=== PATIENT | female | born 1935 | race Caucasian/White ===

== ENCOUNTER 2017-11-10 07:38 | Day surgery (SDC) | payer MEDICARE, OTHER ==
[2017-11-10 08:36] VITALS: RESP 20; TEMP 97.9
[2017-11-10 08:40] LABS: Mean Platelet Volume 7.6; Platelet Count 217 k/uL (150-450)
[2017-11-10 08:46] LABS: INR 1.2 (<1.2); Prothrombin Time 11.4 sec (9.0-12.0)
[2017-11-10] MEDS ORDERED: ALPRAZolam 0.25 MG TAB PO STA (08:57)
[2017-11-10] MEDS ORDERED: cloNIDine HCL 0.1 MG TAB PO STA (10:02)
[2017-11-10 11:02] VITALS: PULSE 52
--- NOTE | 2017-11-10 11:54 | US ---
Discontinued core biopsy liver HISTORY: Liver masses Patient is hypertensive. Hypertension is unable to be controlled medically in the clinic. Patient to be rescheduled. IMPRESSION: Discontinued core biopsy liver mass
[2017-11-10 12:19] VITALS: BP 188/80
== END 2017-11-10 11:30 | disposition home or self-care (01) ==
LOC: RADPROMAIN 07:38
PROVIDERS: ATTEND Internal Medicine
DX: R16.0 Hepatomegaly, not elsewhere classified (principal); I10 Essential (primary) hypertension; Z53.8 Procedure and treatment not carried out for other reasons
CPT/HCPCS: 36415; 76705; 85049; 85610

== ENCOUNTER → 2017-11-21 | Day surgery (SDC) | payer MEDICARE, OTHER ==
[~2017-11-21] MED LIST: MORPHINE SULFATE 4 MG/ML SYRINGE IVP ONE
[2017-11-21 09:23] LABS: Mean Platelet Volume 7.6; Platelet Count 294 k/uL (150-450)
[2017-11-21 09:32] LABS: INR 1.2 (<1.2); Prothrombin Time 11.3 sec (9.0-12.0)
[2017-11-21 11:24] VITALS: TEMP 97.8
[2017-11-21 12:33] VITALS: RESP 16
--- NOTE | 2017-11-21 12:53 | US ---
EXAMINATION TYPE: US biopsy liver DATE OF EXAM: 11/21/2017 HISTORY: Liver masses. FINDINGS: Maximal barrier technique was utilized. The skin overlying a suitable path to the patient' s mass was localized with ultrasound and the overlying skin prepped and draped. Ultrasound was utili zed with sterile technique. Lidocaine was used for local anesthesia. A skin miguel angel was made with a sc alpel. An 18-gauge needle was advanced under direct ultrasound guidance and core specimen obtained o f the left lobe liver mass. Specimen submitted in formalin to Pathology. Following the procedure, h emostasis achieved and the patient is discharged in stable condition without complication. IMPRESSION:STATUS POST ULTRASOUND GUIDED CORE BIOPSY OF left lobe liver MASS, PATHOLOGY IS PENDING. THIS PROCEDURE IS PERFORMED BY THE UNDERSIGNED.
[2017-11-21 14:17] VITALS: BP 151/76; PULSE 67
== END | disposition home or self-care (01) ==
LOC: RADPROMAIN 08:20
PROVIDERS: ATTEND Internal Medicine
DX: C78.7 Secondary malignant neoplasm of liver and intrahepatic bile duct (principal)
CPT/HCPCS: 85049; 85610; 88342; 88307; 88341; 47000; 76942; J2270

== ENCOUNTER → 2017-12-03 | Outpatient (CLI) | payer MEDICARE, OTHER ==
--- NOTE | 2017-12-03 12:55 | MR ---
MR thoracic spine with and without contrast HISTORY: Lung carcinoma, thoracic pain Multiplanar multisequence and postcontrast images through the thoracic spine following 8.5 cc Gadavis t IV Comparisons: none Mild kyphosis. Multilevel spondylosis is present with endplate discogenic marrow signal change and lo ss of disc height and signal. Abnormal marrow signal noted at multiple vertebral bodies to include T9 and T10, T12. At T9 and T10 intermediate signal seen on T1 and T2-weighted sequences with some enhan cement on contrast administration. There is no significant foraminal encroachment or spinal stenosis. There is a scoliosis noted incidentally. Abnormal signal in the left lobe compatible with patient's history of lung carcinoma. There is a left greater than right pleural effusion present. Liver mass no janeth incidentally. Increased signal within the T12 vertebral body may represent hemangioma. Thoracic c ord signal is maintained. Some facet arthropathy change present in the lower thoracic spine. IMPRESSION: Findings compatible with patient's history of lung cancer, metastatic disease, there is d egenerative disc disease present. Scoliosis.
== END | disposition home or self-care (01) ==
LOC: RADMRIMAIN 11:15
PROVIDERS: ATTEND Internal Medicine Hematology & Oncology
DX: M51.34 Other intervertebral disc degeneration, thoracic region (principal); M41.9 Scoliosis, unspecified; C34.12 Malignant neoplasm of upper lobe, left bronchus or lung
CPT/HCPCS: 82565; 72157; 36415; A9581

== ENCOUNTER 2018-01-02 08:40 | Day surgery (SDC) | payer MEDICARE, OTHER ==
[2018-01-02 09:38] VITALS: TEMP 97.6
[2018-01-02 09:40] LABS: Mean Platelet Volume 7.5; Platelet Count 256 k/uL (150-450)
[2018-01-02 09:47] LABS: INR 1.2 (<1.2); Prothrombin Time 11.7 sec (9.0-12.0)
[2018-01-02] MEDS ORDERED: HYDROmorphone 1 MG/ML 1 ML SYRINGE IVP PRN (10:15)
[2018-01-02] MEDS ORDERED: HYDROcodone/APAP 5-325MG 1 EACH TAB PO PRN (11:05)
[2018-01-02 11:17] VITALS: RESP 18
[2018-01-02 12:11] VITALS: PULSE 68
[2018-01-02] MEDS ORDERED: hydrALAZINE HCL 25 MG TAB PO STA (13:40)
--- NOTE | 2018-01-02 13:44 | CT ---
EXAMINATION TYPE: CT biopsy liver DATE OF EXAM: 01/02/2018 COMPARISON: Ultrasound 11/21/2017 HISTORY: Liver mass CT DLP: 903mGycm PROCEDURE: The risks, applications, benefits and alternatives, were discussed with the patient and questions wer e answered. Informed consent was obtained. The patient was placed supine on the fluoroscopic table, prepped and draped in the usual sterile fashion. A 18-gauge system was utilized with direct passage of the needle into the left lobe liver lesion und er CT guidance. Samples were obtained with a single core biopsy sample obtained. Pathology pending. The patient was stable throughout procedure and remained stable upon discharge from radiology. All e lements of maximal barrier and sterile technique were utilized. IMPRESSION: 1. Successful left lobe liver mass core biopsy under CT guidance.
[2018-01-02 15:23] VITALS: BP 137/63
== END 2018-01-02 15:15 | disposition home or self-care (01) ==
LOC: RADPROMAIN 08:40
PROVIDERS: ATTEND Internal Medicine Hematology & Oncology
DX: C78.7 Secondary malignant neoplasm of liver and intrahepatic bile duct (principal)
CPT/HCPCS: 85049; 85610; 88342; 88307; 88341; 96374; 36415; 47000; 77012; J1170

== ENCOUNTER → 2018-03-30 | Outpatient (CLI) | payer MEDICARE, OTHER ==
--- NOTE | 2018-03-31 15:23 | CT ---
EXAMINATION TYPE: CT ChestAbdPelvis w con DATE OF EXAM: 03/30/2018 COMPARISON: MRI of the thoracic spine dated 12/03/2017 HISTORY: Follow-up for lung carcinoma CT DLP: 1304.9 mGycm. Automated Exposure Control for Dose Reduction was Utilized. CONTRAST: CT scan of the thorax, abdomen and pelvis is performed with IV Contrast, patient injected with 100 mL of Isovue 300. FINDINGS: LUNGS: There is a left upper lobe pulmonary mass compatible the patient's known history of lung carci noma. This is heterogenous with areas of hyperdensity and more hypodense areas of probable necrosis. This measures 4.1 x 5.3 x 4.5 cm in transverse by anterior posterior by craniocaudal dimension on ser ies 4 image 15 and series 8 image 79. There is extent of this mass to surround and encase the left up per lobe pulmonary artery with subsequent narrowing. There is also encasement of the left hilum witho ut bronchial narrowing. Pulmonary nodule within the left upper lobe on image 18 is solid in nature an d measures 7 mm anteriorly. Adjacent pulmonary nodule to the primary index mass measures 5 mm on imag e 20. 5 mm pulmonary nodule medially within the left lower lobe is on image 29. 3 mm pulmonary nodule is seen in the left lower lobe on image 31. There is a moderate left pleural effusion and associated atelectasis. Nodular left apical pleural parenchymal scarring is noted. On the right there is a 3 mm right upper lobe solid pulmonary nodule on image 14 and a 2 mm right upp er lobe pulmonary nodule on image 24. There is an ill-defined 2 mm pulmonary nodule on image 28 withi n the superior segment of the right lower lobe. There is a 5 mm solid right middle lobe pulmonary nod ule on image 30 and 2 additional pulmonary nodules on image 33 measuring up to 6 mm. Solid right lowe r lobe pulmonary nodule on image 34 is also identified measuring 4 mm. There is a trace right pleural effusion. MEDIASTINUM: Peribronchial abnormal soft tissue density as discussed in the lung section is appreciat ed however there is no discrete mediastinal adenopathy. Severe coronary artery calcifications are not ed as well as mild cardiomegaly. No pericardial effusion. LIVER/GB: Diffuse hepatic metastasis is seen with the some of the most confluent hepatic lesions in t he inferior right hepatic lobe measuring 3.2 cm and 3.7 cm. Within the left hepatic lobe the largest lesion measures at least 4.6 x 2.6 cm. There are at least 20 hepatic metastasis that are hypoattenuat ed and 2 subcapsular hyperattenuated arterial enhancing foci. Perihepatic ascites also seen. PANCREAS: Atrophy and diffusely hypoattenuating possibly related to infiltrating edema from the abdom inal ascites. SPLEEN: Findings suspicious for splenic metastasis is seen as there are 4 hypoattenuated ill-defined suspicious lesions measuring up to 2.3 cm. ADRENALS: No significant abnormality is seen. KIDNEYS: There is cortical renal atrophy bilaterally with a dystrophic calcification in the right liza al cortical midpole. No hydronephrosis. BOWEL: No dilated large or small bowel. There is centralization of small bowel loop secondary to the abdominal ascites. Colon is decompressed and suboptimally evaluated. LYMPH NODES: Evaluation for adenopathy is limited given the mesenteric congestion and abdominal ascit es. There is suspicion for periportal adenopathy. 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 Abnormal bone marrow is seen within t he T9 and T10 vertebral bodies corresponding to the known metastasis. Known metastasis at T12 is less well seen on CT and better evaluated with MRI. Grade 1 anterolisthesis of L4 on L5 is present. Multi level degenerative change of the spine is noted. Left femoral arthroplasty and moderate degenerative changes of the right femur are present. No compression deformities are seen. Scoliosis is redemonstra janeth. OTHER: As stated above there is moderate abdominopelvic ascites and mesenteric congestion throughout as well as anasarca. Severe atherosclerosis is seen of the abdominal aorta and its branches. Abdominal aorta is of normal course and caliber. IMPRESSION: 1. Left upper lobe pulmonary carcinoma measures up to 5.3 cm in anterior posterior dimension with ips ilateral and contralateral pulmonary nodules representing metastasis given the innumerable metastatic hepatic lesions and metastatic osseous lesions at T9 and T10. There is narrowing of the left upper l obe pulmonary artery and encasement of the bronchi without bronchial obstruction. No pathologic compr ession deformities of T9 or T10. No mediastinal adenopathy. 2. Moderate abdominopelvic ascites, anasarca and mesenteric congestion. 3. Findings highly suspicious for splenic metastasis.
== END | disposition home or self-care (01) ==
LOC: RADCTMAIN 12:46
PROVIDERS: ATTEND Internal Medicine Hematology & Oncology
DX: C79.51 Secondary malignant neoplasm of bone (principal); C78.7 Secondary malignant neoplasm of liver and intrahepatic bile duct; C34.12 Malignant neoplasm of upper lobe, left bronchus or lung; R18.8 Other ascites
CPT/HCPCS: 36415; 71260; 74177; 82565; 84520

== ENCOUNTER 2018-04-08 08:51 | Day surgery (SDC) | payer MEDICARE, OTHER ==
[2018-04-08 09:43] VITALS: RESP 16; TEMP 97.8
[2018-04-08 09:43] LABS: Mean Platelet Volume 7.3; Platelet Count 354 k/uL (150-450)
[2018-04-08 10:01] LABS: INR 1.2 (<1.2); Prothrombin Time 11.7 sec (9.0-12.0)
--- NOTE | 2018-04-08 10:33 | XR ---
EXAMINATION TYPE: XR chest 1V DATE OF EXAM: 04/08/2018 COMPARISON: 03/30/2018 HISTORY: Postthoracentesis TECHNIQUE: Single frontal view of the chest is obtained. FINDINGS: Bilateral shoulder prostheses noted with left consolidation mass. No sizable pneumothorax. Right lung is clear. Atherosclerotic change aorta. Subsegmental changes involving the left upper and lower lobe. IMPRESSION: 1. No pneumothorax postthoracentesis. 2. left upper lobe lung mass
--- NOTE | 2018-04-08 11:07 | US ---
Ultrasound-guided therapeutic and diagnostic thoracentesis DATE OF EXAM: 04/08/2018 CLINICAL HISTORY: Left pleural effusion The procedure was discussed with the patient. The risks, complications, benefits, and alternatives we re discussed and any questions were answered. Informed consent was obtained. The patient was placed supine on the ultrasound table and prepped and draped in the usual sterile fas hion. All elements of maximal barrier and sterile technique were utilized. Under ultrasound guidance, access into the left pleural space was obtained, via the thoracentesis catheter system and direct ultrasound guidance. Elvira roximately 400 liters of serous fluid was removed. The patient was stable throughout the procedure and remained stable upon discharge from Department of Radiology. Sample sent to pathology for analysis. IMPRESSION: 1. Successful therapeutic and diagnostic thoracentesis under ultrasound guidance.
[2018-04-08 11:18] VITALS: BP 149/82; PULSE 96
== END 2018-04-08 10:45 | disposition home or self-care (01) ==
LOC: RADPROMAIN 08:51
PROVIDERS: ATTEND Internal Medicine Hematology & Oncology
DX: J90 Pleural effusion, not elsewhere classified (principal)
CPT/HCPCS: 32555; 36415; 71045; 85049; 85610; 88108; 88305

== ENCOUNTER → 2018-04-16 | Outpatient (CLI) | payer MEDICARE, OTHER ==
--- NOTE | 2018-04-16 13:55 | XR ---
EXAMINATION TYPE: XR chest 2V DATE OF EXAM: 04/16/2018 COMPARISON: 04/08/2018 TECHNIQUE: PA and lateral views submitted. HISTORY: Lung cancer FINDINGS: Left upper lobe lung mass is stable. Atherosclerotic change aorta and left lower lobe consolidation w ith small effusion now seen. Right lung demonstrates subsegmental changes at the base. No pneumothora x. Postsurgical change bilateral shoulder. Hypertrophic and degenerative change of the spine. IMPRESSION: 1. There is left lower lobe infiltrate and small effusion which was not clearly seen on the previous exam. 2. Large left upper lobe lung mass.
== END ==
LOC: RADXRMAIN 13:28
PROVIDERS: ATTEND Nurse Practitioner Adult Health
DX: C34.12 Malignant neoplasm of upper lobe, left bronchus or lung (principal); R91.8 Other nonspecific abnormal finding of lung field; D64.81 Anemia due to antineoplastic chemotherapy
CPT/HCPCS: 71046

== ENCOUNTER → 2018-04-28 | Outpatient (CLI) | payer MEDICARE, OTHER ==
[2018-04-28 21:53] LABS: T4, Free (Free Thyroxine) 1.3 ng/dL (0.80-1.80)
[2018-04-28 21:55] LABS: Anion Gap 13.3 mmol/L (4.00-12.00); Calcium 8.2 mg/dL (8.7-10.3); Carbon Dioxide 21.7 mmol/L (21.6-31.8); Potassium 3.8 mmol/L (3.5-5.5); Total Bilirubin 0.6 mg/dL (0.2-1.2)
== END | disposition home or self-care (01) ==
LOC: LABWHC1 11:39
PROVIDERS: ATTEND Internal Medicine Hematology & Oncology
DX: C34.12 Malignant neoplasm of upper lobe, left bronchus or lung (principal); R60.9 Edema, unspecified; D64.81 Anemia due to antineoplastic chemotherapy; M54.5 Low back pain
CPT/HCPCS: 36415; 80053; 84439; 84443; 84479

== ENCOUNTER → 2018-05-21 | Outpatient (CLI) | payer MEDICARE, OTHER ==
--- NOTE | 2018-05-21 16:55 | US ---
EXAMINATION TYPE: US kidneys/renal and bladder DATE OF EXAM: 05/21/2018 COMPARISON: NONE CLINICAL HISTORY: N18.3 CKD Stage 3. CA patient, chronic renal failure EXAM MEASUREMENTS: Right Kidney: 8.8 x 4.4 x 4.6 cm Left Kidney: 9.3 x 4.4 x 4.8 cm Right Kidney: small in size, no hydronephrosis or masses seen Left Kidney: No hydronephrosis or masses seen Bladder: Not well evaluated during exam. Bilateral Jets seen: not seen IMPRESSION: 1. Bilateral kidneys appear within normal limits ultrasound. 2. Urinary bladder cannot be evaluated.
== END | disposition home or self-care (01) ==
LOC: RADUSWWP 15:52
PROVIDERS: ATTEND Internal Medicine Nephrology
DX: N18.3 Chronic kidney disease, stage 3 (moderate) (principal)
CPT/HCPCS: 76770

== ENCOUNTER → 2018-05-25 | Outpatient (CLI) | payer MEDICARE, OTHER ==
--- NOTE | 2018-05-25 12:31 | CT ---
EXAMINATION TYPE: CT ChestAbdPelvis wo con DATE OF EXAM: 05/25/2018 COMPARISON: CT chest abdomen and pelvis March 30, 2018 HISTORY: Metastatic lung cancer progress study on immunosuppression May 22, 2018. CT DLP: 1259 mGycm. Automated Exposure Control for Dose Reduction was Utilized. TECHNIQUE: CT scan of the thorax, abdomen and pelvis is performed with oral but without IV contrast. Contrast co uld not be given due to inability to get venous access despite multiple attempts. FINDINGS: LUNGS: There is persistent moderate to large size left pleural fluid collection increased in size par ticularly in the base were now abuts left heart border versus prior CT. There is associated compressi ve atelectasis in the base. There is nonlayering component in the apex redemonstrated increased in si ze from prior. There is suspicious Central suprahilar mass or masslike consolidation that is more hyp erdense versus surrounding fluid measuring roughly 5.6 x 3.7 cm on axial image 12. This extends infer iorly to left hilar level similar to prior. There is stable small right pleural effusion. Scattered s mall nodules are redemonstrated, largest right middle lobe axial image 30 are grossly stable measurin g up to 6 mm in size. There is 5 to 6 mm subpleural nodule in the right lower lobe axial image 30 sta ble in size also noted. MEDIASTINUM: There are no new greater than 1 cm hilar or mediastinal lymph nodes. No cardiomegaly i s seen. No pericardial effusion is seen. There is suspected trapped pleural fluid anterior to the he art axial image 33 filling the pleural space. OTHER: Metallic hardware from bilateral shoulder arthroplasties causes streak artifact limiting evalu ation of supraclavicular region. LIVER/GB: Liver is small in size with poorly defined heterogeneous hypodense mass is redemonstrated d ifficult to accurately measure due to somewhat confluent appearance. Most well-defined lesion measure s 4.0 cm posterior right hepatic dome axial image 38 on long axis perhaps slightly increased in size from prior CT where it measures 3.2 cm long axis.. PANCREAS: Fairly moderate diffuse fat replaced atrophy of pancreas is felt present. SPLEEN: Vague hypodense lesions in spleen are less well-visualized versus prior studies suggesting po sitive treatment response. ADRENALS: No significant abnormality is seen. KIDNEYS: Cortical thinning in both kidneys is redemonstrated. BOWEL: No significant abnormality is seen. GENITAL ORGANS: Uterus is surgically absent or markedly atrophic. LYMPH NODES: No greater than 1cm abdominal or pelvic lymph nodes are appreciated. OSSEOUS STRUCTURES: Metallic hardware from left hip arthroplasty causes streak artifact limiting eval uation of pelvic structures. Rate 1 anterolisthesis of L4 on L5 is redemonstrated. Disc space narrowi ng with vacuum disc phenomenon lower lumbar levels is redemonstrated. Sclerotic lesions involving T9 and T10 vertebra are redemonstrated with out pathologic fracture. OTHER: There is moderate amount of abdominal and pelvic ascites increased in prominence particularly in the left abdomen versus prior. There is mild to moderate diffuse soft tissue anasarca redemonstrat ed without significant interval change. There is moderate to severe calcified plaque of aorta extendi ng into branch vessels. IMPRESSION: Redemonstration of hepatic metastatic disease with difficulty confirming interval change. Interval improvement in suspected splenic metastatic disease noted. Worsening moderate to large siz e left pleural effusion. Worsening moderate abdominal and pelvic ascites. Stable suspected ossific me tastatic disease to the T9 and T10 vertebra. Stable pulmonary nodularity. Left upper lobe mass or hugo plasm difficult to assess interval change. Overall mixed response felt present.
== END ==
LOC: RADCTMAIN 09:45
PROVIDERS: ATTEND Internal Medicine Hematology & Oncology
DX: C34.12 Malignant neoplasm of upper lobe, left bronchus or lung (principal)
CPT/HCPCS: 36415; 71250; 74176; 82565; 84520

== ENCOUNTER 2018-06-03 09:52 | Day surgery (SDC) | payer MEDICARE, OTHER ==
[2018-06-03 11:29] VITALS: TEMP 97.5
[2018-06-03 11:32] LABS: Platelet Count 256 k/uL (150-450)
[2018-06-03 12:47] VITALS: BP 155/70; PULSE 88; RESP 18
--- NOTE | 2018-06-03 13:04 | XR ---
EXAMINATION TYPE: XR chest 1V portable DATE OF EXAM: 06/03/2018 HISTORY: Status post left-sided thoracentesis. COMPARISON: 04/23/2018 TECHNIQUE: Single view of the chest is submitted. FINDINGS: Demonstrated are scattered senescent parenchymal change. No evidence for left-sided pneumothorax in a patient who is status post thoracentesis. Left upper lob e mass noted. Hilar and mediastinal structures are within normal limits. Degenerative changes are seen of the dorsal spine. IMPRESSION: 1. No evidence for left-sided pneumothorax in a patient who is status post thoracentesis. Left upper lobe mass noted.
--- NOTE | 2018-06-03 14:52 | US ---
EXAMINATION TYPE: US guide vascular access DATE OF EXAM: 06/03/2018 HISTORY: Needs IV access for thoracentesis therapy. PROCEDURE: Maximal barrier technique utilized. The skin overlying the basilic vein was localized with ultrasoun d and the vein was noted to be compressible and patent by ultrasound and ultrasound image was obtaine d and submitted on patient's chart. Under direct ultrasound guidance a 22-gauge Angiocath was advanc ed into the vein and fixed in place. Catheter was aspirated and flushed with sterile saline. Hemost asis achieved. Catheter fixed in place. No immediate complication. IMPRESSION: Ultrasound-guided venipuncture, this procedure performed by the undersigned.
--- NOTE | 2018-06-03 15:22 | US ---
EXAMINATION TYPE: US thoracentesis DATE OF EXAM: 06/03/2018 COMPARISON: NONE HISTORY: Pleural effusion. FINDINGS: Maximal barrier technique was utilized. The skin overlying a suitable pocket of fluid was localized and the overlying skin prepped and draped. Lidocaine was used for local anesthesia. Ultras ound was used with sterile technique. A 5 Croatian catheter over guide needle was advanced into the pl eural fluid collection using ultrasound guidance and the catheter advanced, needle removed. Approxim ately 1 liter(s) of serous fluid was removed. Catheter was withdrawn and hemostasis achieved. There is no immediate complication. The patient discharged in stable condition without complication. IMPRESSION: STATUS POST ULTRASOUND GUIDED THORACENTESIS, POST PROCEDURE CHEST X-RAY PENDING. THIS NV OCEDURE WAS PERFORMED BY THE UNDERSIGNED. Specimen sent for laboratory analysis.
== END 2018-06-03 13:30 | disposition home or self-care (01) ==
LOC: RADPROMAIN 09:52
PROVIDERS: ATTEND Internal Medicine Hematology & Oncology
DX: J91.8 Pleural effusion in other conditions classified elsewhere (principal)
CPT/HCPCS: 32555; 36415; 71045; 76937; 85049